=== PATIENT | female | born 1950 | race Caucasian/White ===

== ENCOUNTER 2017-06-07 08:37 | Outpatient (RCR) | payer MEDICARE, BC ==
[~2017-06-07] VITALS: Ht 165.1 cm; Wt 141.5 kg
[~2017-06-07 08:37] MED LIST: FLU60SYR30 IM ONLY; GARL10004 PO; LISI-362 PO; LISI5TAB25 PO; METF-410 PO; MULT-1176 PO; PNEU0.5D3 IM; TRIA-18 PO; UMEC1DIS INH; ZOST19404 IM
--- NOTE | 2017-06-07 14:20 | Medical Nutrition Therapy ---
Nutrition Anthropometrics Height (Inches): 65 Weight (Pounds): 312 [place] Nutrition Score: [place] Nutrition Risk Score: Dietary Referral Nutrition Risk Factors: Nutrition Risk Comment: Physical Findings Physical Appearance: Morbidly Obese 40+ (BMI 51.9) Skin Appearance Skin Appearance: Edema Edema Location Modifier: Edema Location: Type of Edema: Degree of Edema: Gastrointestinal Symptoms GI Symtoms: Tube Present: Bowel Sounds: Recent Bowel Pattern: Stool Characteristics: Nutrition/Food History Breakfast: 2c oatmeal, almond milk, 1 sl WW bread with PB Lunch: veg/parker soup almond milk, decaf tea wit 1 tsp sugar Dinner: veg soup , bread, salad Snacks: 1 oz nuts,, oranges Nutritional Education Learning Readiness: Interested Teaching Methods: Discussion, Handout, Demonstration Response to Teaching: Verbalize understanding Teaching Recipient: Patient Nutrition Counseling: Pt states has been trying to lose wt and is down 85# fromn high wt of 397# October 2015. Pt states prefers starches over meats, has tried juicing diet and lost 37#, was able to keep "most of it" off. Pt brought in diet recommended by friend. Diet was promoted by a MD. Reviewed diet with pt and how it would fit with diabetes. Diet was vegan with emaphis on whole grains. Reviewed glycemic response and stated this diet should work with diabetes. Recommend taking B12 supplment. Reviewed plate method and put beans and nuts with the protein section. Diet does allow tofu and soy beans and encouraged pt to try these or to eat beans and grains together for complete amino acid. Pt's A1C was >14. Pt states she believes she will be starting insulin. Encouraged pt to cont to use her foot bike but to avoid exercise when BG >300. Pt schedulded for diabetic classes. Nutrition Monitoring & Eval RD Assessment Type: RD Education Nutritional Comment: Provided 105 mintues MNT for diabetes Copies To Copies to: TONIO ROSA APRN, BETH Jun 07, 2017 14:19
[2017-06-17] MEDS ORDERED: METF-410 PO (10:56)
== END 2017-07-12 ==
LOC: DIET 08:37
PROVIDERS: ATTEND Nurse Practitioner Family
DX: Z71.3 Dietary counseling and surveillance (principal); E11.9 Type 2 diabetes mellitus without complications; Z68.43 Body mass index [BMI] 50.0-59.9, adult
CPT/HCPCS: 97802

== ENCOUNTER → 2017-06-27 | Outpatient (CLI) | payer MEDICARE, BC | LOC: LAB 10:49 | PROVIDERS: ATTEND Nurse Practitioner Family | DX: E11.65 Type 2 diabetes mellitus with hyperglycemia (principal) | CPT/HCPCS: 36415; 82040; 82247; 82310; 82374; 82435; 82465; 82565; 82947; 83036; 83718; 84075; 84132; 84155; 84295; 84450; 84460; 84478; 84520 ==

== ENCOUNTER → 2017-10-14 | Outpatient (CLI) | payer MEDICARE, BC ==
[~2017-10-14] MED LIST changes: -METF-410 PO; +METF-411 PO
[2017-10-14 17:00] LABS: PLATELET COUNT, AUTOMATED 257 K/uL (150-450)
[2017-10-14 17:05] LABS: LDL CHOLESTEROL 91 mg/dl
== END ==
LOC: LAB 16:32
PROVIDERS: ATTEND Nurse Practitioner Family
DX: I10 Essential (primary) hypertension (principal); E11.9 Type 2 diabetes mellitus without complications
CPT/HCPCS: 36415; 82040; 82247; 82310; 82374; 82435; 82465; 82565; 82947; 83036; 83718; 84075; 84132; 84155; 84295; 84443; 84450; 84460; 84478; 84520; 85025

== ENCOUNTER → 2018-02-16 | Outpatient (CLI) | payer MEDICARE, BC ==
[~2018-02-16] MED LIST changes: +FLU180SY11 IM; +GLIM2TAB43 PO; +Glucometer; -METF-411 PO; +METF-450 PO
[2018-02-16 09:21] LABS: LDL CHOLESTEROL 89 mg/dl
== END ==
LOC: LAB 08:16
PROVIDERS: ATTEND Nurse Practitioner Family
DX: E11.65 Type 2 diabetes mellitus with hyperglycemia (principal); E78.5 Hyperlipidemia, unspecified; I10 Essential (primary) hypertension
CPT/HCPCS: 36415; 82040; 82247; 82310; 82374; 82435; 82465; 82565; 82947; 83036; 83718; 84075; 84132; 84155; 84295; 84450; 84460; 84478; 84520

== ENCOUNTER → 2018-05-24 | Outpatient (CLI) | payer MEDICARE, BC ==
[~2018-05-24] MED LIST changes: +GLIM4TAB50 PO; +ROSU5TAB3 PO
== END ==
LOC: LAB 10:49
PROVIDERS: ATTEND Nurse Practitioner Family
DX: I10 Essential (primary) hypertension (principal); E11.9 Type 2 diabetes mellitus without complications; E78.5 Hyperlipidemia, unspecified
CPT/HCPCS: 36415; 82040; 82247; 82310; 82374; 82435; 82465; 82565; 82947; 83036; 83718; 84075; 84132; 84155; 84295; 84450; 84460; 84478; 84520

== ENCOUNTER → 2018-08-16 | Outpatient (CLI) | payer MEDICARE, BC | LOC: LAB 10:22 | PROVIDERS: ATTEND Nurse Practitioner Family | DX: E78.5 Hyperlipidemia, unspecified (principal); E11.9 Type 2 diabetes mellitus without complications; I10 Essential (primary) hypertension | CPT/HCPCS: 36415; 82040; 82247; 82310; 82374; 82435; 82565; 82947; 83036; 84075; 84132; 84155; 84295; 84450; 84460; 84520 ==

== ENCOUNTER → 2018-11-30 | Outpatient (CLI) | payer MEDICARE, BC ==
[~2018-11-30] MED LIST changes: +VARI50KI IM
[2018-11-30 10:31] LABS: PLATELET COUNT, AUTOMATED 300 K/uL (150-450)
== END ==
LOC: LAB 09:50
PROVIDERS: ATTEND Nurse Practitioner Family
DX: E87.5 Hyperkalemia (principal); E11.9 Type 2 diabetes mellitus without complications; I10 Essential (primary) hypertension
CPT/HCPCS: 36415; 82040; 82247; 82310; 82374; 82435; 82465; 82565; 82947; 83036; 83718; 84075; 84132; 84155; 84295; 84443; 84450; 84460; 84478; 84520; 85025

== ENCOUNTER → 2018-12-01 | Outpatient (CLI) | payer MEDICARE, BC | LOC: LAB 09:31 | PROVIDERS: ATTEND Nurse Practitioner Family | DX: R79.89 Other specified abnormal findings of blood chemistry (principal) | CPT/HCPCS: 36415; 84439; 84480 ==